=== PATIENT | male | born 1960 | race American Indian/Alaskan Native ===

== ENCOUNTER 2018-01-02 14:12 | Inpatient (IN) | payer OTHER ==
--- NOTE | 2018-01-02 14:55 | Emergency Department Report ---
<ANITA CHUN III - Last Filed: 01/03/18 00:28> ED Back Pain/Injury HPI - General Chief Complaint: Back Pain/Injury Stated Complaint: BACK PAIN Time Seen by Provider: 01/02/18 14:55 - Related Data Allergies Allergy/AdvReac Type Severity Reaction Status Date / Time No Known Allergies Allergy Unverified 01/02/18 14:39 ED Review of Systems ROS: Stated complaint: BACK PAIN Other details as noted in HPI ED Course Vital Signs 01/02/18 01/02/18 01/02/18 14:30 15:26 16:07 Temperature 99 F Pulse Rate 70 Respiratory 18 18 Rate Blood Pressure 210/132 Blood Pressure 235/136 [Left] O2 Sat by Pulse 100 Oximetry 01/02/18 01/02/18 01/02/18 17:00 19:30 19:38 Temperature Pulse Rate 83 Respiratory 16 16 Rate Blood Pressure Blood Pressure 175/59 191/110 191/110 [Left] O2 Sat by Pulse 99 Oximetry 01/02/18 01/02/18 01/02/18 20:08 21:57 22:24 Temperature Pulse Rate 78 78 Respiratory 16 Rate Blood Pressure 175/91 Blood Pressure 186/99 184/109 [Left] O2 Sat by Pulse 98 Oximetry 01/02/18 01/02/18 01/02/18 22:38 23:18 23:48 Temperature Pulse Rate 71 70 77 Respiratory 16 14 Rate Blood Pressure Blood Pressure 184/113 201/108 165/104 [Left] O2 Sat by Pulse 95 Oximetry 01/02/18 01/03/18 01/03/18 23:55 00:53 00:54 Temperature Pulse Rate 74 80 83 Respiratory 14 Rate Blood Pressure Blood Pressure 179/105 165/100 182/108 [Left] O2 Sat by Pulse 99 Oximetry 01/03/18 01/03/18 01/03/18 01:31 01:38 01:40 Temperature Pulse Rate 94 H Respiratory 13 Rate Blood Pressure 185/115 185/115 Blood Pressure [Left] O2 Sat by Pulse 97 Oximetry 01/03/18 01:50 Temperature Pulse Rate 89 Respiratory 19 Rate Blood Pressure 198/122 Blood Pressure [Left] O2 Sat by Pulse 98 Oximetry - Reevaluation(s) Reevaluation #1: Signout received from previous doctor, Dr. Guerin. Dr. Dumont states patient is here for a lower back injury and was found to be hypertensive. Patient has a pending CTA of the abdomen and a CTA of the chest to rule out dissection due to back pain and hypertension. 01/02/18 20:15 Reevaluation #2: I went in to see patient. Discussed patient's blood pressure and clinical situation. Patient states he came to the emergency room for lower back pain 2 days that was radiating down his right leg. Patient states he injured his back lifting something at work. Patient also states he twisted the wrong way while lifting. Patient was brought in by EMS due to chapping of the ago that did seem on a pain patient states the pain is 10 out of 10. Patient states since being here the pain is improved to a 5 out of 10. Patient states he stopped taking his blood pressure medications 8 months ago. Patient states prior to injuring his back he is has occasional chest pressure and consistent shortness of breath and dyspnea on exertion. Patient was given 5 mg of Lopressor and blood pressure remains to be 205/116. CTA of the chest is negative for a PE or dissection. Will admit patient to the hospital service for further evaluation and treatment. We'll consult hospitalist service for further cardiac evaluation. 01/02/18 22:27 - Consultations Consultation #1: Was consulted for admission. Hospitalist to admit patient. Dr contreras to assume care and agrees with nicardipine drip noted to control blood pressure better. Patient is going to be admitted into the ICU 01/02/18 22:37 ED Medical Decision Making - Lab Data Result diagrams: 01/02/18 16:23 01/02/18 16:23 - EKG Data -: EKG Interpreted by Me EKG shows normal: sinus rhythm, axis, intervals, QRS complexes, ST-T waves Rate: normal - EKG Data Interpretation: [facility] - Radiology Data Radiology results: report reviewed Critical Care Time: Yes Critical care attestation.: If time is entered above; I have spent that time in minutes in the direct care of this critically ill patient, excluding procedure time. Critical Care Time: 25 minutes for cc time. ED Disposition Clinical Impression: Malignant hypertension, SOB (shortness of breath), DENISE (dyspnea on exertion) Lower back pain Qualifiers: Chronicity: acute Back pain laterality: right Sciatica presence: with sciatica Sciatica laterality: sciatica of right side Qualified Code(s): M54.41 - Lumbago with sciatica, right side Lumbar strain Qualifiers: Encounter type: initial encounter Qualified Code(s): S39.012A - Strain of muscle, fascia and tendon of lower back, initial encounter Disposition: OP ADMIT IP TO THIS HOSP Is pt being admited?: Yes Does the pt Need Aspirin: Yes Condition: Critical Time of Disposition: 22:37 <PAUL GUERIN - Last Filed: 01/04/18 14:29> ED Back Pain/Injury HPI - General Source: patient, EMS Limitations: No Limitations - History of Present Illness MD Complaint: back pain, back injury -: Sudden, days(s) (3) Similar Symptoms Previously: No Place: work Radiation: right leg Severity: severe Severity scale (0 -10): 10 Quality: sharp Consistency: constant Improves With: immobilization Worsens With: movement Context: while lifting Associated Symptoms: denies other symptoms ED Review of Systems Comment: All other systems reviewed and negative Constitutional: denies: chills, fever Eyes: denies: eye pain ENT: denies: ear pain, throat pain Respiratory: denies: cough, orthopnea, shortness of breath Cardiovascular: denies: chest pain, palpitations, dyspnea on exertion, orthopnea Endocrine: no symptoms reported Gastrointestinal: denies: abdominal pain, nausea, vomiting, diarrhea Genitourinary: denies: urgency, dysuria, frequency Musculoskeletal: back pain Skin: denies: rash, lesions, change in color Neurological: denies: headache, weakness, numbness, paresthesias, confusion Psychiatric: denies: anxiety, depression Hematological/Lymphatic: denies: easy bleeding, easy bruising ED Past Medical Hx - Social History Smoking Status: Never Smoker Substance Use Type: None ED Physical Exam - General Limitations: No Limitations General appearance: alert, in distress - Head Head exam: Present: atraumatic, normocephalic, normal inspection - Eye Eye exam: Present: normal appearance, PERRL, EOMI Pupils: Present: normal accommodation - ENT ENT exam: Present: normal exam, normal orophraynx, mucous membranes moist - Neck Neck exam: Present: normal inspection, full ROM. Absent: tenderness - Respiratory Respiratory exam: Present: normal lung sounds bilaterally. Absent: respiratory distress, wheezes, rales, rhonchi, stridor - Cardiovascular Cardiovascular Exam: Present: regular rate, normal rhythm, normal heart sounds - GI/Abdominal GI/Abdominal exam: Present: soft, normal bowel sounds. Absent: distended, tenderness, guarding, rebound, rigid - Rectal Rectal exam: Present: deferred - Extremities Exam Extremities exam: Present: normal inspection, full ROM, normal capillary refill. Absent: tenderness, pedal edema - Back Exam Back exam: Present: normal inspection, full ROM, muscle spasm, paraspinal tenderness. Absent: tenderness, CVA tenderness (R), CVA tenderness (L), vertebral tenderness - Neurological Exam Neurological exam: Present: alert, oriented X3, CN II-XII intact - Psychiatric Psychiatric exam: Present: normal affect, normal mood - Skin Skin exam: Present: warm, dry, intact, normal color. Absent: rash ED Medical Decision Making - Lab Data Result diagrams: 01/02/18 16:23 01/02/18 16:23
[2018-01-02] MEDS ORDERED: DILAUDID IV ONE ×2 (15:25→20:01)
[2018-01-02] MEDS ORDERED: ZOFRAN IV ONE (15:28)
[2018-01-02 16:42] LABS: Basophils # (Auto) 0.1 K/mm3 (0.0-0.1); Basophils % (Auto) 0.8 % (0.0-1.8); Eosinophils # (Auto) 0.1 K/mm3 (0.0-0.4); Eosinophils % (Auto) 0.8 % (0.0-4.3); Hematocrit 44.7 % (35.5-45.6); Hemoglobin 15.5 gm/dl (11.8-15.2); Lymphocytes # (Auto) 1.3 K/mm3 (1.2-5.4); Lymphocytes % (Auto) 18.7 % (13.4-35.0); Mean Corpuscular HGB Conc 35 % (32-34); Mean Corpuscular Hemoglobin 31 pg (28-32); Mean Corpuscular Volume 89 fl (84-94); Monocytes # (Auto) 0.7 K/mm3 (0.0-0.8); Monocytes % (Auto) 10.2 % (0.0-7.3); Platelet Count 251 K/mm3 (140-440); Red Blood Count 5.05 M/mm3 (3.65-5.03); Red Cell Distribution Width 14.7 % (13.2-15.2)
[2018-01-02] MEDS ORDERED: SOLU-Medrol IV ONE (16:48)
[2018-01-02] MEDS ORDERED: BENADRYL IV ONE (16:48)
[2018-01-02] MEDS ORDERED: SOLU-Medrol ONE (16:52)
[2018-01-02] MEDS ORDERED: BENADRYL ONE (16:53)
[2018-01-02 17:10] LABS: Alanine Aminotransferase 24 units/L (7-56); Albumin 4.6 g/dL (3.9-5); BUN/Creatinine Ratio 16; Blood Urea Nitrogen 14 mg/dL (9-20); Calcium 9.4 mg/dL (8.4-10.2); Hemolysis Index 6
--- NOTE | 2018-01-02 17:17 | Cat Scan Report ---
FINAL REPORT EXAM: CT LUMBAR SPINE WO CON HISTORY: Lower back pain TECHNIQUE: Axial helical imaging through the lumbar spine with sagittal and coronal reformatted images obtained. Comparison: None FINDINGS: There is mild retrolisthesis of L4 on L5. Bony alignment is otherwise normal. The vertebral heights are maintained. There is slight loss of height of the L4-L5 disc. Visualization detail the contents of the lumbar canal is limited by artifact. However, there appears to be a disc bulge at the L4-L5 level with a possible right paracentral or foraminal disc protrusion/herniation. There is no evidence of fracture or subluxation. The paraspinous soft tissues are notable for a focus of atrophic change in the right paraspinous musculature extending from L3 inferiorly through L4. This may represent chronic posttraumatic change. The there is atherosclerotic vascular calcification of the aorta and iliac arteries. IMPRESSION: 1. Appearance of degenerative disc change at L4-L5 level with possible right paracentral/foraminal disc protrusion/herniation. MRI would be helpful for further evaluation 2. Focus of atrophic change in the right paraspinous musculature extending from L3 inferiorly to L4. This may represent chronic posttraumatic change.
[2018-01-02] MEDS ORDERED: DILAUDID ONE (19:59)
[2018-01-02 20:10] LABS: Bilirubin,Urine NEG (Negative); Blood,Urine NEG (Negative); Color,Urine Yellow (Yellow); Mucus,Urine FEW /HPF; Protein,Urine <15 mg/dL mg/dL (Negative); Urobilinogen,Urine < 2.0 mg/dL (<2.0)
[2018-01-02] MEDS ORDERED: LOPRESSOR IV ONE (20:19)
--- NOTE | 2018-01-02 21:22 | Cat Scan Report ---
FINAL REPORT EXAM: CT ANGIO CHEST and CT angiogram abdomen and pelvis HISTORY: pain TECHNIQUE: Following IV administration of 150 cc of Omnipaque 350 axial helical imaging was performed through the chest, abdomen and pelvis with sagittal and coronal reformatted images and maximum intensity projection images obtained. Comparison: CT lumbar spine also performed today FINDINGS: There is no evidence of infiltrate, pneumothorax or pleural fluid collection. The heart is enlarged. The thoracic aorta is normal caliber and without evidence of dissection. There is evidence of plaque formation in the proximal left subclavian artery and in the posterior aortic arch and descending thoracic aorta. There is no evidence of significant stenosis. There is no evidence of intrathoracic adenopathy. The bony structures are unremarkable in appearance. CT angiogram abdomen and pelvis: The liver, pancreas and adrenal glands are normal in appearance. The gallbladder is mildly distended and unremarkable in appearance. There is a cortical scar in the right kidney. The kidneys are otherwise unremarkable. The spleen is normal size. However, there is heterogeneous enhancement within the spleen suggestive of an infiltrative process, tumor or infection. Splenic infarcts cannot be excluded with seen less likely given the appearance. The bowel is normal caliber. The appendix is normal in appearance. There is no evidence of pneumoperitoneum or free fluid. The abdominal aorta is normal caliber. There is atherosclerotic vascular calcification of the large and medium caliber arteries. There is normal enhancement of the major intra-abdominal branches of the abdominal aorta without evidence of occlusion or significant stenosis. There is no evidence of pathologic intra-abdominal adenopathy. The urinary bladder is moderately distended and unremarkable in appearance. The prostate gland is normal size. The bony structures are notable for spondylitic change of the lumbar spine with the appearance of a possible right paracentral/foraminal disc protrusion/herniation at the L5-S1 level. Again noted is the asymmetric atrophy of the right paraspinous musculature in the lower lumbar spine. IMPRESSION: CT angiogram chest: 1. Cardiomegaly. 2. Plaque formation proximal left subclavian artery and posterior aortic arch and descending thoracic aorta without evidence of significant stenosis. No evidence of aortic dissection. CT angiogram abdomen and pelvis: 1. Atherosclerotic vascular calcification of the large and medium caliber arteries without evidence of occlusion, aneurysm or significant stenoses of the aorta or intra-abdominal branches. 2. Heterogeneous enhancement of the spleen concerning for splenic mass or infection. A lymphoproliferative disorder such as lymphoma needs to be considered. Splenic infarcts would seem less likely given the appearance. MRI would be helpful for further evaluation. 3. Spondylitic change lumbar spine with the appearance of a possible right paracentral/foraminal disc protrusion/herniation at the L5-S1 level. If further imaging is required, MRI may be helpful.
[2018-01-02] MEDS ORDERED: ASPIRIN PO ONE (22:38)
[2018-01-02 23:18] LABS: Creatine Kinase MB 2.9 ng/mL (0.0-4.0)
[2018-01-02] MEDS: CARDENE 50 MG in NACL 0.9% 250ML 230 ML IV SCH (23:23)
[2018-01-02] MEDS ORDERED: AMBIEN PO PRN (23:32)
[2018-01-02] MEDS ORDERED: TYLENOL PO PRN (23:32)
[2018-01-02] MEDS ORDERED: ZOFRAN IV PRN (23:32)
[2018-01-02] MEDS ORDERED: SODIUM CHLORIDE FLUSH SYRINGE 10 ML IV PRN (23:32)
[2018-01-02] MEDS ORDERED: ALUM-MAG HYDROX-SIMETH 200-200-20MG/5ML PO PRN (23:32)
--- NOTE | 2018-01-03 00:10 | History and Physical Report ---
History of Present Illness Date of examination: 01/03/18 Date of admission: 01/03/18 Chief complaint: Back pain History of present illness: Patient is a 57-year-old -[place] male with history of hypertension who presented to the ED on account of 4 days history of lower back pain. Patient reported that he suddenly started experiencing back pain after he carried a heavy object at work. The pain got worse today with inability to mobilize, which prompted him to come to the ED for further evaluation. He has positive history of left knee swelling, excessive sweating and shortness of breath with exertion. He denies chest pain, palpitation, orthopnea or PND. No headaches, nausea, vomiting, fever, chills, dizziness, syncope or loss of consciousness. No abdominal pain, constipation, diarrhea, dysuria or frequency. In the ED, patient's blood pressure was noted to be markedly elevated. He admitted to being off his medications for the past 8 months because they made him vomit. While in the ED, his blood pressure could not be controlled with PRN antihypertensives, so he was placed on a nicardipine drip. Past History Past Medical History: hypertension, other (TIA) Past Surgical History: Other (Eye surgery) Social history: other (patient admits to daily alcohol use. He quit smoking tobacco a year ago, he smoked for 2 years. He denies illicit drug use) Family history: diabetes, hypertension, stroke Medications and Allergies Allergies Allergy/AdvReac Type Severity Reaction Status Date / Time No Known Allergies Allergy Unverified 01/02/18 14:39 Active Meds: Active Medications Acetaminophen (Tylenol) 650 mg PO Q6HR PRN PRN Reason: For Pain/Fever/Headache Al Hydrox/Mg Hydrox/Simethicone (Alum-Mag Hydrox-Simeth [id number]/5ml) 30 ml PO Q4H PRN PRN Reason: Indigestion Alprazolam (Xanax) 0.25 mg PO Q8H PRN PRN Reason: Anxiety Docusate Sodium (Colace) 100 mg PO BID VINOD Enoxaparin Sodium (Lovenox) 40 mg SUB-Q QDAY VINOD Nicardipine HCl 50 mg/ Sodium (Chloride) 250 mls @ 25 mls/hr IV TITR VINOD; Protocol Last Admin: 01/02/18 23:23 Dose: 5 mg/hr, 25 mls/hr Sodium Chloride (Nacl 0.45% 1000 Ml) 1,000 mls @ 50 mls/hr IV DIRECT VINOD Morphine Sulfate (Morphine) 2 mg IV Q4H PRN PRN Reason: Pain, Moderate (4-6) Ondansetron HCl (Zofran) 4 mg IV Q8H PRN PRN Reason: Nausea And Vomiting Oxycodone/Acetaminophen (Percocet 5/325) 1 tab PO Q6H PRN PRN Reason: Pain, Moderate (4-6) Sodium Chloride (Sodium Chloride Flush Syringe 10 Ml) 10 ml IV BID VINOD Sodium Chloride (Sodium Chloride Flush Syringe 10 Ml) 10 ml IV PRN PRN PRN Reason: LINE FLUSH Zolpidem Tartrate (Ambien) 5 mg PO QHS PRN PRN Reason: Sleeplessness Review of Systems All systems: negative (except as documented in the HPI, all other systems were reviewed and negative) Exam - Constitutional Vitals: Temp Pulse Resp BP Pulse Ox 99 F 74 14 179/105 95 01/02/18 14:30 01/02/18 23:55 01/02/18 23:48 01/02/18 23:55 01/02/18 23:18 General appearance: Present: no acute distress, well-nourished - EENT Eyes: Present: PERRL, EOM intact ENT: hearing intact, clear oral mucosa - Neck Neck: Present: supple, normal ROM - Respiratory Respiratory effort: normal Respiratory: bilateral: CTA - Cardiovascular Rhythm: regular Heart Sounds: Present: S1 & S2. Absent: rub, click - Extremities Extremities: pulses symmetrical Extremity abnormal: edema (left knee) Peripheral Pulses: within normal limits - Abdominal General gastrointestinal: Present: soft, non-tender, non-distended, normal bowel sounds Male genitourinary: Present: normal - Integumentary Integumentary: Present: clear, warm, dry - Psychiatric Psychiatric: appropriate mood/affect, intact judgment & insight - Neurologic Neurologic: CNII-XII intact Results - Labs CBC & Chem 7: 01/02/18 16:23 01/02/18 16:23 Labs: Laboratory Last Values WBC 6.9 K/mm3 (4.5-11.0) 01/02/18 16:23 RBC 5.05 M/mm3 (3.65-5.03) H 01/02/18 16:23 Hgb 15.5 gm/dl (11.8-15.2) H 01/02/18 16:23 Hct 44.7 % (35.5-45.6) 01/02/18 16:23 MCV 89 fl (84-94) 01/02/18 16:23 MCH 31 pg (28-32) 01/02/18 16:23 MCHC 35 % (32-34) H 01/02/18 16:23 RDW 14.7 % (13.2-15.2) 01/02/18 16:23 Plt Count 251 K/mm3 (140-440) 01/02/18 16:23 Lymph % (Auto) 18.7 % (13.4-35.0) 01/02/18 16:23 [place] % (Auto) 10.2 % (0.0-7.3) H 01/02/18 16:23 Eos % (Auto) 0.8 % (0.0-4.3) 01/02/18 16:23 Baso % (Auto) 0.8 % (0.0-1.8) 01/02/18 16:23 Lymph # 1.3 K/mm3 (1.2-5.4) 01/02/18 16:23 [place] # 0.7 K/mm3 (0.0-0.8) 01/02/18 16:23 Eos # 0.1 K/mm3 (0.0-0.4) 01/02/18 16:23 Baso # 0.1 K/mm3 (0.0-0.1) 01/02/18 16:23 Seg Neutrophils % 69.5 % (40.0-70.0) 01/02/18 16:23 Seg Neutrophils # 4.8 K/mm3 (1.8-7.7) 01/02/18 16:23 Sodium 138 mmol/L (137-145) 01/02/18 16:23 Potassium 4.0 mmol/L (3.6-5.0) 01/02/18 16:23 Chloride 100.5 mmol/L (98-107) 01/02/18 16:23 Carbon Dioxide 23 mmol/L (22-30) 01/02/18 16:23 Anion Gap 19 mmol/L 01/02/18 16:23 BUN 14 mg/dL (9-20) 01/02/18 16:23 Creatinine 0.9 mg/dL (0.8-1.5) 01/02/18 16:23 Estimated GFR > 60 ml/min 01/02/18 16:23 BUN/Creatinine Ratio 16 % 01/02/18 16:23 Glucose 96 mg/dL (75-100) 01/02/18 16:23 Calcium 9.4 mg/dL (8.4-10.2) 01/02/18 16:23 Total Bilirubin 0.40 mg/dL (0.1-1.2) 01/02/18 16:23 AST 21 units/L (5-40) 01/02/18 16:23 ALT 24 units/L (7-56) 01/02/18 16:23 Alkaline Phosphatase 83 units/L (35-129) 01/02/18 16:23 Total Creatine Kinase 151 units/L (55-170) 01/02/18 22:48 CK-MB (CK-2) 2.9 ng/mL (0.0-4.0) 01/02/18 22:48 CK-MB (CK-2) Rel Index 1.9 (0-4) 01/02/18 22:48 Troponin T < 0.010 ng/mL (0.00-0.029) 01/02/18 22:48 NT-Pro-B Natriuret Pep 133.7 pg/mL (0-900) 01/02/18 22:48 Total Protein 7.9 g/dL (6.3-8.2) 01/02/18 16:23 Albumin 4.6 g/dL (3.9-5) 01/02/18 16:23 Albumin/Globulin Ratio 1.4 % 01/02/18 16:23 Urine Color Yellow (Yellow) 01/02/18 19:22 Urine Turbidity Clear (Clear) 01/02/18 19:22 Urine pH 5.0 (5.0-7.0) 01/02/18 19:22 Ur Specific [place] 1.047 (1.003-1.030) H 01/02/18 19:22 Urine Protein <15 mg/dl mg/dL (Negative) 01/02/18 19:22 Urine Glucose (UA) Neg mg/dL (Negative) 01/02/18 19:22 Urine Ketones Tr mg/dL (Negative) 01/02/18 19:22 Urine Blood Neg (Negative) 01/02/18 19:22 Urine Nitrite Neg (Negative) 01/02/18 19:22 Urine Bilirubin Neg (Negative) 01/02/18 19:22 Urine Urobilinogen < 2.0 mg/dL (<2.0) 01/02/18 19:22 Ur Leukocyte Esterase Neg (Negative) 01/02/18 19:22 Urine WBC (Auto) 1.0 /HPF (0.0-6.0) 01/02/18 19:22 Urine RBC (Auto) 2.0 /HPF (0.0-6.0) 01/02/18 19:22 U Epithel Cells (Auto) 1.0 /HPF (0-13.0) 01/02/18 19:22 Urine Mucus Few /HPF 01/02/18 19:22 Assessment and Plan Assessment and plan: Hypertensive emergency with BP:210/132 -Will admit patient to the ICU -Will continue nicardipine drip Acute severe back pain -CT lumbar spine showed possible disc herniation L5-S1 -MRI for further evaluation pending -When necessary narcotics for pain control Possible splenic mass versus infection per imaging -MRI recommended for further evaluation Dyspnea on exertion -Echo to assess EF and valvular function Left knee swelling with pain -Left knee x-ray for further eval Medication noncompliance -Patient counseled History of heat intolerance -Will check TSH level Prophylaxis -DVT prophylaxis with Lovenox I spent 45 minutes providing critical care to this seriously ill patient who requires frequent reassessments of his cardiovascular status. Disposition: Discharge will depend on clinical course
--- NOTE | 2018-01-03 01:03 | XRay Report ---
FINAL REPORT EXAM: XR KNEE 3V LT HISTORY: LT KNEE PAIN TECHNIQUE: PRIORS: None. FINDINGS: The bones are normally aligned and mineralized. There is severe narrowing of the medial joint space with subchondral sclerosis mild osteophyte formation. There is mild osteophyte formation on the posterior patella. The lateral joint is well preserved. Is no evidence of acute fracture. The soft tissues are unremarkable. IMPRESSION: No evidence of acute fracture or subluxation. 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
[2018-01-03] MEDS: PERCOCET 5/325 PO PRN ×3 (02:15→18:12)
[2018-01-03] MEDS: XANAX PO PRN ×3 (03:16→20:04)
[2018-01-03] MEDS: CARDENE 50 MG in NACL 0.9% 250ML 230 ML IV SCH (07:17)
[2018-01-03] MEDS: COLACE PO SCH ×2 (10:11→21:02)
[2018-01-03] MEDS: LOVENOX SUB-Q SCH (10:11)
--- NOTE | 2018-01-03 10:58 | Progress Note ---
Assessment and Plan Assessment and Plan Hypertensive emergency with BP:210/132--167/103 mm HG -BP trending down Oral BP meds ordered -Will D/c nicardipine drip Acute severe back pain -CT lumbar spine showed possible disc herniation L5-S1 -MRI for further evaluation pending -When necessary narcotics for pain control Possible splenic mass versus infection per imaging -MRI recommended for further evaluation Dyspnea on exertion -Echo to assess EF and valvular function Left knee swelling with pain -Left knee x-ray for further eval Medication noncompliance -Patient counseled History of heat intolerance -Will check TSH level Prophylaxis -DVT prophylaxis with Lovenox 167/103 now Subjective Date of service: 01/03/18 Principal diagnosis: hypertensive emergency Interval history: Symptomatically better Objective - Constitutional Vitals: Vital Signs - 12hr 01/02/18 01/02/18 01/02/18 23:18 23:48 23:55 Pulse Rate 70 77 74 Respiratory 16 14 Rate Blood Pressure Blood Pressure 201/108 165/104 179/105 [Left] O2 Sat by Pulse 95 Oximetry 01/03/18 01/03/18 01/03/18 00:53 00:54 01:31 Pulse Rate 80 83 Respiratory 14 Rate Blood Pressure Blood Pressure 165/100 182/108 [Left] O2 Sat by Pulse 99 97 Oximetry 01/03/18 01/03/18 01/03/18 01:38 01:40 01:50 Pulse Rate 94 H 89 Respiratory 13 19 Rate Blood Pressure 185/115 185/115 198/122 Blood Pressure [Left] O2 Sat by Pulse 98 Oximetry 01/03/18 01/03/18 01/03/18 02:00 02:10 02:20 Pulse Rate 89 94 H 98 H Respiratory 26 H 20 31 H Rate Blood Pressure 172/98 185/115 204/111 Blood Pressure [Left] O2 Sat by Pulse 97 99 97 Oximetry 01/03/18 01/03/18 01/03/18 02:30 02:40 02:50 Pulse Rate 98 H 96 H 93 H Respiratory 18 16 15 Rate Blood Pressure 219/114 219/114 191/107 Blood Pressure [Left] O2 Sat by Pulse 97 98 98 Oximetry 01/03/18 01/03/18 01/03/18 03:00 03:31 05:00 Pulse Rate 95 H Respiratory 31 H Rate Blood Pressure 167/103 Blood Pressure [Left] O2 Sat by Pulse 97 97 96 Oximetry 01/03/18 01/03/18 07:00 09:00 Pulse Rate Respiratory Rate Blood Pressure Blood Pressure [Left] O2 Sat by Pulse 96 96 Oximetry General appearance: Present: no acute distress, well-nourished - EENT Eyes: PERRL, EOM intact ENT: hearing intact, clear oral mucosa Ears: bilateral: normal - Neck Neck: supple, normal ROM - Respiratory Respiratory effort: normal Respiratory: bilateral: CTA - Breasts Breasts: normal - Cardiovascular Rhythm: regular Heart Sounds: Present: S1 & S2. Absent: gallop, rub Extremities: pulses intact, No edema, normal color, Full ROM - Gastrointestinal General gastrointestinal: Present: soft, non-tender, non-distended, normal bowel sounds - Genitourinary Male genitourinary: normal - Integumentary Integumentary: clear, warm, dry - Musculoskeletal Musculoskeletal: 1, strength equal bilaterally - Neurologic Neurologic: moves all extremities - Psychiatric Psychiatric: memory intact, appropriate mood/affect, intact judgment & insight - Labs CBC & Chem 7: 01/02/18 16:23 01/02/18 16:23 Labs: Abnormal lab results 01/02/18 01/02/18 Range/Units 16:23 19:22 RBC 5.05 H (3.65-5.03) M/mm3 Hgb 15.5 H (11.8-15.2) gm/dl MCHC 35 H (32-34) % [place] % (Auto) 10.2 H (0.0-7.3) % Ur Specific [place] 1.047 H (1.003-1.030)
[2018-01-03] MEDS: MORPHINE IV PRN (13:48)
[2018-01-03] MEDS: COREG PO SCH ×2 (13:51→21:02)
[2018-01-03] MEDS: COZAAR PO SCH (13:52)
--- NOTE | 2018-01-03 15:51 | Consultation ---
History of Present Illness Consult date: 01/03/18 Requesting physician: JADEN CERVANTES Reason for consult: other (Hypertensive emergency) History of present illness: PULMONARY/CCM CONSULT NOTE (Full dictation # [id number]) Please see dictated notes for full details Past History Past Medical History: hypertension, other (TIA) Past Surgical History: Other (Eye surgery) Social history: other (patient admits to daily alcohol use. He quit smoking tobacco a year ago, he smoked for 2 years. He denies illicit drug use) Family history: diabetes, hypertension, stroke Medications and Allergies Allergies Allergy/AdvReac Type Severity Reaction Status Date / Time No Known Allergies Allergy Unverified 01/02/18 14:39 Active Meds: Active Medications Acetaminophen (Tylenol) 650 mg PO Q6HR PRN PRN Reason: For Pain/Fever/Headache Al Hydrox/Mg Hydrox/Simethicone (Alum-Mag Hydrox-Simeth [phone]/5ml) 30 ml PO Q4H PRN PRN Reason: Indigestion Alprazolam (Xanax) 0.25 mg PO Q8H PRN PRN Reason: Anxiety Last Admin: 01/03/18 10:11 Dose: 0.25 mg Baclofen (Lioresal) 20 mg PO TID [facility]OD Carvedilol (Coreg) 12.5 mg PO BID [facility] Last Admin: 01/03/18 13:51 Dose: 12.5 mg Docusate Sodium (Colace) 100 mg PO BID [facility] Last Admin: 01/03/18 10:11 Dose: 100 mg Enoxaparin Sodium (Lovenox) 40 mg SUB-Q QDAY [facility] Last Admin: 01/03/18 10:11 Dose: 40 mg Nicardipine HCl 50 mg/ Sodium (Chloride) 250 mls @ 25 mls/hr IV TITR VINOD; Protocol Last Admin: 01/03/18 07:17 Dose: 5 mg/hr, 25 mls/hr Sodium Chloride (Nacl 0.45% 1000 Ml) 1,000 mls @ 50 mls/hr IV DIRECT [facility] Losartan Potassium (Cozaar) 100 mg PO QDAY [facility] Last Admin: 01/03/18 13:52 Dose: 100 mg Morphine Sulfate (Morphine) 2 mg IV Q4H PRN PRN Reason: Pain, Moderate (4-6) Last Admin: 01/03/18 13:48 Dose: 2 mg Ondansetron HCl (Zofran) 4 mg IV Q8H PRN PRN Reason: Nausea And Vomiting Oxycodone/Acetaminophen (Percocet 5/325) 1 tab PO Q6H PRN PRN Reason: Pain, Moderate (4-6) Last Admin: 01/03/18 08:03 Dose: 1 tab Sodium Chloride (Sodium Chloride Flush Syringe 10 Ml) 10 ml IV BID [facility]INOD Sodium Chloride (Sodium Chloride Flush Syringe 10 Ml) 10 ml IV PRN PRN PRN Reason: LINE FLUSH Zolpidem Tartrate (Ambien) 5 mg PO QHS PRN PRN Reason: Sleeplessness Physical Examination Vital signs: Vital Signs Temp Pulse Resp BP Pulse Ox 99 F 70 18 210/132 100 01/02/18 14:30 01/02/18 14:30 01/02/18 14:30 01/02/18 14:30 01/02/18 14:30 Results - Laboratory Findings CBC and BMP: 01/02/18 16:23 01/02/18 16:23 Abnormal lab findings: Abnormal Labs 01/02/18 01/02/18 16:23 19:22 RBC 5.05 H Hgb 15.5 H MCHC 35 H [place] % (Auto) 10.2 H Ur Specific [place] 1.047 H
[2018-01-03] MEDS: LIORESAL PO SCH ×2 (15:59→21:03)
[2018-01-03] MEDS: APRESOLINE IV SCH ×3 (16:02→21:06)
[2018-01-03] MEDS: SODIUM CHLORIDE FLUSH SYRINGE 10 ML IV SCH ×2 (18:38→21:02)
[2018-01-04] MEDS: PERCOCET 5/325 PO PRN ×2 (02:51→10:28)
[2018-01-04] MEDS: XANAX PO PRN ×2 (04:05→14:16)
[2018-01-04] MEDS: APRESOLINE IV SCH ×6 (04:09→22:36)
[2018-01-04] MEDS: MORPHINE IV PRN ×2 (08:25→18:31)
[2018-01-04] MEDS: LIORESAL PO SCH ×3 (08:26→20:16)
[2018-01-04] MEDS: LOVENOX SUB-Q SCH (10:22)
[2018-01-04] MEDS: COLACE PO SCH ×2 (10:23→22:31)
[2018-01-04] MEDS: COZAAR PO SCH (10:23)
[2018-01-04] MEDS: COREG PO SCH ×2 (10:23→22:36)
[2018-01-04] MEDS: SODIUM CHLORIDE FLUSH SYRINGE 10 ML IV SCH ×2 (10:24→22:37)
--- NOTE | 2018-01-04 14:21 | Progress Note ---
Assessment and Plan Hypertensive emergency. Back pain. Obesity. Dyspnea on exertion. Left knee swelling. Medication noncompliance. History of tobacco use, now abstaining - continue to titrate antihypertensives - weight loss and tobacco abstinence counseled - continue GI & VTE prophylaxis - continue other care per attending ... will see prn at this point. Subjective Date of service: 01/04/18 Principal diagnosis: hypertensive emergency; DENISE; SOB; Obesity Interval history: Patient is seen today for: hypertensive emergency; DENISE; SOB; Obesity Seen and examined at bedside; 24hour events reviewed; nursing and respiratory care staff consulted; no adverse overnight events reported to me; of jada bautista; doing better; denies acute chest pains or increased SOB Objective Vital Signs - 12hr 01/04/18 01/04/18 01/04/18 02:21 02:31 02:41 Temperature Pulse Rate 68 65 69 Respiratory 19 17 14 Rate Blood Pressure 146/88 146/88 146/88 O2 Sat by Pulse 97 97 98 Oximetry 01/04/18 01/04/18 01/04/18 02:51 03:00 03:11 Temperature Pulse Rate 67 84 78 Respiratory 17 15 14 Rate Blood Pressure 146/88 143/102 143/102 O2 Sat by Pulse 97 98 99 Oximetry 01/04/18 01/04/18 01/04/18 03:21 03:31 03:41 Temperature Pulse Rate 77 71 76 Respiratory 22 20 17 Rate Blood Pressure 143/102 143/102 143/102 O2 Sat by Pulse 95 96 97 Oximetry 01/04/18 01/04/18 01/04/18 03:51 04:00 04:09 Temperature Pulse Rate 65 75 Respiratory 16 13 Rate Blood Pressure 143/102 142/100 148/102 O2 Sat by Pulse 95 97 Oximetry 01/04/18 01/04/18 01/04/18 04:11 04:21 04:31 Temperature Pulse Rate 65 65 65 Respiratory 17 15 18 Rate Blood Pressure 142/100 142/100 142/100 O2 Sat by Pulse 95 96 96 Oximetry 01/04/18 01/04/18 01/04/18 04:41 04:51 05:00 Temperature Pulse Rate 66 64 77 Respiratory 15 17 18 Rate Blood Pressure 142/100 142/100 163/71 O2 Sat by Pulse 95 95 94 Oximetry 01/04/18 01/04/18 01/04/18 05:11 05:21 05:31 Temperature Pulse Rate 68 69 70 Respiratory 17 18 17 Rate Blood Pressure 163/71 142/100 142/100 O2 Sat by Pulse 95 95 95 Oximetry 01/04/18 01/04/18 01/04/18 05:41 05:51 06:01 Temperature Pulse Rate 68 70 64 Respiratory 17 17 17 Rate Blood Pressure 142/100 142/100 157/40 O2 Sat by Pulse 95 96 95 Oximetry 01/04/18 01/04/18 01/04/18 06:11 06:21 06:31 Temperature Pulse Rate 67 66 63 Respiratory 17 16 13 Rate Blood Pressure 157/40 157/40 157/40 O2 Sat by Pulse 95 95 98 Oximetry 01/04/18 01/04/18 01/04/18 06:41 06:51 07:00 Temperature Pulse Rate 68 62 64 Respiratory 19 17 17 Rate Blood Pressure 157/40 157/40 170/130 O2 Sat by Pulse 98 97 96 Oximetry 01/04/18 01/04/18 01/04/18 07:11 07:21 07:31 Temperature Pulse Rate 67 64 66 Respiratory 18 17 20 Rate Blood Pressure 170/130 157/40 157/40 O2 Sat by Pulse 96 96 96 Oximetry 01/04/18 01/04/18 01/04/18 07:41 07:51 08:00 Temperature 97.8 F Pulse Rate 66 77 75 Respiratory 19 17 22 Rate Blood Pressure 157/40 157/40 139/101 O2 Sat by Pulse 96 97 95 Oximetry 01/04/18 01/04/18 01/04/18 08:11 08:21 08:31 Temperature Pulse Rate 74 76 75 Respiratory 19 18 18 Rate Blood Pressure 139/101 139/101 139/101 O2 Sat by Pulse 93 97 94 Oximetry 01/04/18 01/04/18 01/04/18 08:41 08:51 09:00 Temperature Pulse Rate 91 H 88 87 Respiratory 17 11 L 15 Rate Blood Pressure 139/101 139/101 174/96 O2 Sat by Pulse 96 97 95 Oximetry 01/04/18 01/04/18 01/04/18 09:11 09:21 09:31 Temperature Pulse Rate 92 H 88 Respiratory 11 L 14 16 Rate Blood Pressure 174/96 174/96 174/96 O2 Sat by Pulse 98 96 96 Oximetry 01/04/18 01/04/18 01/04/18 09:41 09:51 10:00 Temperature Pulse Rate 86 85 85 Respiratory 24 20 13 Rate Blood Pressure 174/96 174/96 160/102 O2 Sat by Pulse 96 94 96 Oximetry 01/04/18 01/04/18 01/04/18 10:11 10:21 10:31 Temperature Pulse Rate 83 92 H 84 Respiratory 20 21 17 Rate Blood Pressure 160/102 160/102 160/102 O2 Sat by Pulse 95 97 96 Oximetry 01/04/18 01/04/18 01/04/18 10:41 10:50 11:00 Temperature Pulse Rate 88 97 H 90 Respiratory 28 H 22 25 H Rate Blood Pressure 160/102 160/102 158/87 O2 Sat by Pulse 95 97 98 Oximetry 01/04/18 01/04/18 01/04/18 11:10 11:21 11:31 Temperature Pulse Rate 79 75 80 Respiratory 16 18 21 Rate Blood Pressure 158/87 158/87 158/87 O2 Sat by Pulse 96 93 94 Oximetry 01/04/18 01/04/18 01/04/18 11:41 11:51 12:00 Temperature 97.3 F L Pulse Rate 96 H 91 H 82 Respiratory 17 17 18 Rate Blood Pressure 158/87 158/87 172/85 O2 Sat by Pulse 96 95 98 Oximetry 01/04/18 01/04/18 01/04/18 12:10 12:20 12:30 Temperature Pulse Rate 75 77 Respiratory 15 20 20 Rate Blood Pressure 172/85 172/85 172/85 O2 Sat by Pulse 94 92 93 Oximetry 01/04/18 01/04/18 01/04/18 12:40 12:50 13:00 Temperature Pulse Rate 73 78 78 Respiratory 18 18 17 Rate Blood Pressure 172/85 172/85 172/85 O2 Sat by Pulse 96 94 96 Oximetry 01/04/18 01/04/18 01/04/18 13:10 13:20 13:30 Temperature Pulse Rate 76 79 73 Respiratory 18 17 19 Rate Blood Pressure 158/87 163/78 163/78 O2 Sat by Pulse 96 95 96 Oximetry 01/04/18 01/04/18 01/04/18 13:40 13:50 14:00 Temperature Pulse Rate 86 74 67 Respiratory 17 19 17 Rate Blood Pressure 163/78 163/78 146/81 O2 Sat by Pulse 97 96 97 Oximetry Constitutional: no acute distress, alert, other (obese middle aged male; normocephalic and atraumatic) Eyes: non-icteric ENT: oropharynx moist Neck: supple, lymphadenopathy, no JVD Effort: normal Ascultation: Bilateral: clear, diminished breath sounds Percussion: Bilateral: not dull Cardiovascular: regular rate and rhythm Gastrointestinal: normoactive bowel sounds, soft, non-tender, non-distended Integumentary: normal Extremities: no cyanosis, no edema, pulses normal, no ischemia or petechiae Neurologic: normal mental status, non-focal exam, pupils equal and round, motor strength normal and Psychiatric: mood appropriate, affect normal CBC and BMP: 01/02/18 16:23 01/02/18 16:23 Abnormal lab findings: Abnormal Labs 01/02/18 01/02/18 16:23 19:22 RBC 5.05 H Hgb 15.5 H MCHC 35 H [place] % (Auto) 10.2 H Ur Specific [place] 1.047 H Chest x-ray: image reviewed
--- NOTE | 2018-01-04 14:38 | Progress Note ---
Assessment and Plan Assessment and Plan Hypertensive emergency with BP:210/132--167/103 mm HG--Today 146/81 mm Hg Oral BP meds ordered -Will D/c nicardipine drip Transfer to [facility] Acute severe back pain -CT lumbar spine showed possible disc herniation L5-S1 -MRI possibly tomorrow and discharge -When necessary narcotics for pain control Possible splenic mass versus infection per imaging -MRI recommended for further evaluation Dyspnea on exertion -Echo--Normal EF Obesity induced SOB Medication noncompliance -Patient counseled History of heat intolerance -TSH level Prophylaxis -DVT prophylaxis with Lovenox Discharge planning issues Patient maybe discharged tomorrow after MRI is done If disc prolapse present patient to follow with Ortho/Neurosurgeon as outpatient Subjective Date of service: 01/04/18 Principal diagnosis: hypertensive emergency Interval history: Symptomatically better Objective - Constitutional Vitals: Vital Signs - 12hr 01/04/18 01/04/18 01/04/18 02:41 02:51 03:00 Temperature Pulse Rate 69 67 84 Respiratory 14 17 15 Rate Blood Pressure 146/88 146/88 143/102 O2 Sat by Pulse 98 97 98 Oximetry 01/04/18 01/04/18 01/04/18 03:11 03:21 03:31 Temperature Pulse Rate 78 77 71 Respiratory 14 22 20 Rate Blood Pressure 143/102 143/102 143/102 O2 Sat by Pulse 99 95 96 Oximetry 01/04/18 01/04/18 01/04/18 03:41 03:51 04:00 Temperature Pulse Rate 76 65 75 Respiratory 17 16 13 Rate Blood Pressure 143/102 143/102 142/100 O2 Sat by Pulse 97 95 97 Oximetry 01/04/18 01/04/18 01/04/18 04:09 04:11 04:21 Temperature Pulse Rate 65 65 Respiratory 17 15 Rate Blood Pressure 148/102 142/100 142/100 O2 Sat by Pulse 95 96 Oximetry 01/04/18 01/04/18 01/04/18 04:31 04:41 04:51 Temperature Pulse Rate 65 66 64 Respiratory 18 15 17 Rate Blood Pressure 142/100 142/100 142/100 O2 Sat by Pulse 96 95 95 Oximetry 01/04/18 01/04/18 01/04/18 05:00 05:11 05:21 Temperature Pulse Rate 77 68 69 Respiratory 18 17 18 Rate Blood Pressure 163/71 163/71 142/100 O2 Sat by Pulse 94 95 95 Oximetry 01/04/18 01/04/18 01/04/18 05:31 05:41 05:51 Temperature Pulse Rate 70 68 70 Respiratory 17 17 17 Rate Blood Pressure 142/100 142/100 142/100 O2 Sat by Pulse 95 95 96 Oximetry 01/04/18 01/04/18 01/04/18 06:01 06:11 06:21 Temperature Pulse Rate 64 67 66 Respiratory 17 17 16 Rate Blood Pressure 157/40 157/40 157/40 O2 Sat by Pulse 95 95 95 Oximetry 01/04/18 01/04/18 01/04/18 06:31 06:41 06:51 Temperature Pulse Rate 63 68 62 Respiratory 13 19 17 Rate Blood Pressure 157/40 157/40 157/40 O2 Sat by Pulse 98 98 97 Oximetry 01/04/18 01/04/18 01/04/18 07:00 07:11 07:21 Temperature Pulse Rate 64 67 64 Respiratory 17 18 17 Rate Blood Pressure 170/130 170/130 157/40 O2 Sat by Pulse 96 96 96 Oximetry 01/04/18 01/04/18 01/04/18 07:31 07:41 07:51 Temperature Pulse Rate 66 66 77 Respiratory 20 19 17 Rate Blood Pressure 157/40 157/40 157/40 O2 Sat by Pulse 96 96 97 Oximetry 01/04/18 01/04/18 01/04/18 08:00 08:11 08:21 Temperature 97.8 F Pulse Rate 75 74 76 Respiratory 22 19 18 Rate Blood Pressure 139/101 139/101 139/101 O2 Sat by Pulse 95 93 97 Oximetry 01/04/18 01/04/18 01/04/18 08:31 08:41 08:51 Temperature Pulse Rate 75 91 H 88 Respiratory 18 17 11 L Rate Blood Pressure 139/101 139/101 139/101 O2 Sat by Pulse 94 96 97 Oximetry 01/04/18 01/04/18 01/04/18 09:00 09:11 09:21 Temperature Pulse Rate 87 92 H Respiratory 15 11 L 14 Rate Blood Pressure 174/96 174/96 174/96 O2 Sat by Pulse 95 98 96 Oximetry 01/04/18 01/04/18 01/04/18 09:31 09:41 09:51 Temperature Pulse Rate 88 86 85 Respiratory 16 24 20 Rate Blood Pressure 174/96 174/96 174/96 O2 Sat by Pulse 96 96 94 Oximetry 01/04/18 01/04/18 01/04/18 10:00 10:11 10:21 Temperature Pulse Rate 85 83 92 H Respiratory 13 20 21 Rate Blood Pressure 160/102 160/102 160/102 O2 Sat by Pulse 96 95 97 Oximetry 01/04/18 01/04/18 01/04/18 10:31 10:41 10:50 Temperature Pulse Rate 84 88 97 H Respiratory 17 28 H 22 Rate Blood Pressure 160/102 160/102 160/102 O2 Sat by Pulse 96 95 97 Oximetry 01/04/18 01/04/18 01/04/18 11:00 11:10 11:21 Temperature Pulse Rate 90 79 75 Respiratory 25 H 16 18 Rate Blood Pressure 158/87 158/87 158/87 O2 Sat by Pulse 98 96 93 Oximetry 01/04/18 01/04/18 01/04/18 11:31 11:41 11:51 Temperature Pulse Rate 80 96 H 91 H Respiratory 21 17 17 Rate Blood Pressure 158/87 158/87 158/87 O2 Sat by Pulse 94 96 95 Oximetry 01/04/18 01/04/18 01/04/18 12:00 12:10 12:20 Temperature 97.3 F L Pulse Rate 82 75 77 Respiratory 18 15 20 Rate Blood Pressure 172/85 172/85 172/85 O2 Sat by Pulse 98 94 92 Oximetry 01/04/18 01/04/18 01/04/18 12:30 12:40 12:50 Temperature Pulse Rate 73 78 Respiratory 20 18 18 Rate Blood Pressure 172/85 172/85 172/85 O2 Sat by Pulse 93 96 94 Oximetry 01/04/18 01/04/18 01/04/18 13:00 13:10 13:20 Temperature Pulse Rate 78 76 79 Respiratory 17 18 17 Rate Blood Pressure 172/85 158/87 163/78 O2 Sat by Pulse 96 96 95 Oximetry 01/04/18 01/04/18 01/04/18 13:30 13:40 13:50 Temperature Pulse Rate 73 86 74 Respiratory 19 17 19 Rate Blood Pressure 163/78 163/78 163/78 O2 Sat by Pulse 96 97 96 Oximetry 01/04/18 14:00 Temperature Pulse Rate 67 Respiratory 17 Rate Blood Pressure 146/81 O2 Sat by Pulse 97 Oximetry General appearance: Present: no acute distress, well-nourished - EENT Eyes: PERRL, EOM intact ENT: hearing intact, clear oral mucosa Ears: bilateral: normal - Neck Neck: supple, normal ROM - Respiratory Respiratory effort: normal Respiratory: bilateral: CTA - Breasts Breasts: normal - Cardiovascular Rhythm: regular Heart Sounds: Present: S1 & S2. Absent: gallop, rub Extremities: pulses intact, No edema, normal color, Full ROM - Gastrointestinal General gastrointestinal: Present: soft, non-tender, non-distended, normal bowel sounds - Genitourinary Male genitourinary: normal - Integumentary Integumentary: clear, warm, dry - Musculoskeletal Musculoskeletal: 1, strength equal bilaterally - Neurologic Neurologic: moves all extremities - Psychiatric Psychiatric: memory intact, appropriate mood/affect, intact judgment & insight - Labs CBC & Chem 7: 01/02/18 16:23 01/02/18 16:23 Labs: IMPRESSION: 1. Appearance of degenerative disc change at L4-L5 level with possible right paracentral/foraminal disc protrusion/herniation. MRI would be helpful for further evaluation 2. Focus of atrophic change in the right paraspinous musculature extending from L3 inferiorly to L4. This may represent chronic posttraumatic change. ECHO- Normal EF
--- NOTE | 2018-01-04 23:28 | Consultation ---
PULMONARY CRITICAL CARE CONSULTATION NOTE CONSULTING PHYSICIAN: Jo Pham MD REASON FOR CONSULTATION: Hypertensive emergency. CHIEF COMPLAINT AND HISTORY OF PRESENT ILLNESS: The patient is a 57-year-old male with past medical history significant for hypertension, presented to the Emergency Room complaining of 4 days of lower back pain. He stated that it was related to exertion and current heavy object at work, however, the pain got worse on the day of presentation. He denied any chest pain. He was complaining of some left knee swelling, dyspnea on exertion. Denies fevers or chills. Denies nausea, vomiting or other constitutional symptoms. In the ER, he was found to be significantly hypertensive with systolic blood pressure as high as 235 and diastolics 136. He was placed on a Cardene drip and admitted to the Intensive Care Unit where I stopped by to see him. When I stopped by to see him, he was resting in bed, remained on Cardene. He still denied chest pain, was feeling a little bit better. He admits to not being compliant with his medications for a little while. He does have less than 10 pack year tobacco smoking history and denied any illicit drug use or abuse. That really is as much of the history of presentation as I have. PAST MEDICAL HISTORY: 1. Hypertension. 2. He has had a transient ischemic attack in the past. PAST SURGICAL HISTORY: He has had surgery to his eye. MEDICATIONS: Medications he was on at the time I stopped by to see him were reviewed, pertinent medications include the following: Tylenol 650 mg p.o. q. 6 hours p.r.n. fevers and mild pain, p.r.n. Xanax 0.25 mg p.o. q. 8 hours for anxiety. Carvedilol 12.5 mg p.o. b.i.d., docusate sodium 100 mg p.o. b.i.d., Lovenox 40 mg subcutaneous daily, Cozaar 100 mg p.o. daily, morphine 2 mg IV q. 4 hours p.r.n. moderate pain, nicardipine drip was going at 5 mg an hour, Zofran 4 mg IV q. 8 hours p.r.n. nausea and vomiting as well as p.r.n. Percocet. ALLERGIES: No known drug allergies. DIET: Obese gentleman. Denies significant weight loss or gain in the preceding few weeks to months. FAMILY AND SOCIAL HISTORY: Lives in the community. Less than 5 pack year tobacco smoking history. Denies current alcohol, tobacco, or illicit drug use or abuse. Family history is positive for diabetes, hypertension and cerebrovascular accidents. REVIEW OF SYSTEMS: No loss of consciousness. No new onset seizures. No new onset focal weakness. No gross hematochezia or melena. No gross hematuria or dysuria. No hematemesis. No hemoptysis. Denies palpitations. Denies heat or cold intolerance. He does have the dyspnea on exertion. Denied orthopnea. Denied polydipsia, polyuria. Complete 13-system review of systems was obtained. Pertinent positives and/or negatives as in body of history above, otherwise noncontributory. PHYSICAL EXAMINATION: VITAL SIGNS: At presentation had a low-grade fever 99.0 degrees Fahrenheit with a pulse of 70, respiratory rate of 18, and blood pressure 210/132. O2 sats were 97%, inspired oxygen concentration at that time was not recorded. When I stopped by to see him was 95% on room air. GENERAL: He is a middle-aged male, obese, normocephalic, atraumatic, talking to me in full sentences. HEAD, EYES, EARS, NOSE, AND THROAT: Eyes: Anicteric, no conjunctival erythema. Grossly, no palpable lymph nodes in the supraclavicular or submandibular lymph node chains. Oropharynx is a Mallampati #3-4 oropharynx. No thyromegaly. LUNGS: Auscultation of both lung higgins significant for distant breath sounds, but clear. No wheezing. HEART: Heart sounds 1 and 2 are heard. They were regular in rate and rhythm at time of my evaluation. No rubs or murmurs, no gallop. ABDOMEN: Soft, full, bowel sounds are positive, nontender. No palpable hepatosplenomegaly. No suprapubic tenderness or swelling. EXTREMITIES: Without overt digital clubbing or cyanosis. He does have some edema to the left knee. Dorsalis pedis pulses are palpable bilaterally. NEUROLOGIC: Moves all 4 extremities spontaneously. Cranial nerves 2-12 are intact. Pupils are equal, round, reactive to light. Extraocular muscle movements are intact. SKIN: The skin is of normal turgor. No cellulitis. No rash. PSYCHIATRIC: Mood is normal and affect is appropriate. Intact insight and judgment. LABORATORY DATA: From my review; admission white cell count 6900, hemoglobin 15.5, hematocrit 44.7, platelet count 251. Serum sodium 138, potassium 4.0, chloride 101, bicarb 23, BUN 14, creatinine 0.9, glucose 96. Liver function test within normal limits. BNP within normal limits. Cardiac enzymes within normal limits. TSH within normal limits. Urinalysis was unremarkable. No microbiology studies. DIAGNOSTIC DATA: Chest x-ray was not done; however, a CT angiogram of the chest was done. I have reviewed the CT scan. I have also reviewed the radiologist's interpretation. The mediastinal windows reveal poor contrast phase timing for evaluation of pulmonary emboli; however, no obvious dissection of the aorta in the higgins that were visible. Lung windows do not reveal any significant abnormalities. It is, however, an inadequate study for evaluation of pulmonary emboli. ASSESSMENT: 1. Hypertensive emergency. 2. Back pain. 3. Obesity. 4. Dyspnea on exertion. 5. Left knee swelling. 6. Medication noncompliance. 7. History of tobacco use, now abstaining. PLAN: Will begin him on scheduled hydralazine with hold parameters, while we up titrate his oral medications in a bit to get him off the nicardipine drip. He really did not have any complaints in particular with regards to overt chest pain; however, he is at risk with his obesity and lifestyle of possible venous thromboembolic event. Will go ahead and get a D-dimer as well as ultrasounds of both lower extremities in light of the swelling. Depending on the results, a decision will be made as to whether I should go ahead and get a V/Q scan. Oxygen will be given as necessary to keep sats greater than 90%. P.r.n. analgesia will be used for pain control. Further workup of the possible splenic mass will be left to the attending physician. Imaging of the knee and lumbar spine did not show any acute fracture. It did show some suggestion of DJD. He is appropriately on DVT prophylaxis. He will be put on GI prophylaxis. Flu and pneumonia vaccination will be per protocol. Thank you very much for the consult. We will follow along and make further recommendations as picture progresses/becomes clearer. I should mention continued tobacco abstinence has been counseled and weight loss has been counseled. He is critically ill on life-sustaining interventions including vasoactive medications, at risk for further deterioration in the cardiovascular systems and respiratory systems including the risk of . At this time, we spent about 35-40 minutes of critical care time without overlap and excluding any procedural time that may be necessary. JOB# [id number] KEVIN/STEFF BARRAZA
[2018-01-05] MEDS: APRESOLINE IV SCH ×4 (06:44→13:41)
[2018-01-05] MEDS: NACL 0.45% 1000 ML 1,000 ML IV SCH (06:53)
[2018-01-05] MEDS: LIORESAL PO SCH ×3 (08:20→20:49)
[2018-01-05] MEDS: COZAAR PO SCH (09:51)
[2018-01-05] MEDS: COLACE PO SCH ×2 (09:51→21:59)
[2018-01-05] MEDS: LOVENOX SUB-Q SCH (09:51)
[2018-01-05] MEDS: SODIUM CHLORIDE FLUSH SYRINGE 10 ML IV SCH ×2 (09:52→21:59)
[2018-01-05] MEDS: COREG PO SCH ×2 (09:52→21:58)
--- NOTE | 2018-01-05 14:09 | Progress Note ---
Assessment and Plan Assessment and plan: Hypertensive emergency -off nicardipine drip -Blood pressure still elevated, antihypertensives adjusted Acute severe back pain -CT lumbar spine showed possible disc herniation L5-S1 -MRI for further evaluation pending -cont PRN narcotics for pain control -PT consulted Possible splenic mass versus infection per imaging -MRI recommended for further evaluation pending Dyspnea on exertion -Echo showed EF of 70-75% with diastolic dysf Left knee pain -Left knee x-ray neg for acute fracture Medication noncompliance -Patient counseled Prophylaxis -DVT prophylaxis with Lovenox Disposition: Patient is awaiting MRI. History Interval history: Patient continues to complain of lower back pain. He has been unable to walk independently since admission. Hospitalist Physical - Constitutional Vitals: Temp Pulse Resp BP Pulse Ox 98.5 F 86 20 179/99 97 01/05/18 11:37 01/05/18 13:41 01/05/18 11:37 01/05/18 13:41 01/05/18 11:37 General appearance: Present: no acute distress, well-nourished - EENT Eyes: Present: PERRL, EOM intact ENT: hearing intact, clear oral mucosa - Neck Neck: Present: supple - Respiratory Respiratory effort: normal Respiratory: bilateral: CTA - Cardiovascular Rhythm: regular Heart Sounds: Present: S1 & S2 - Extremities Extremities: No edema - Abdominal General gastrointestinal: soft, non-tender, normal bowel sounds - Neurologic Neurologic: moves all extremities, other (Alert and oriented 3) Results - Labs CBC & Chem 7: 01/02/18 16:23 01/02/18 16:23 Labs: Laboratory Last Values WBC 6.9 K/mm3 (4.5-11.0) 01/02/18 16:23 RBC 5.05 M/mm3 (3.65-5.03) H 01/02/18 16:23 Hgb 15.5 gm/dl (11.8-15.2) H 01/02/18 16:23 Hct 44.7 % (35.5-45.6) 01/02/18 16:23 MCV 89 fl (84-94) 01/02/18 16:23 MCH 31 pg (28-32) 01/02/18 16:23 MCHC 35 % (32-34) H 01/02/18 16:23 RDW 14.7 % (13.2-15.2) 01/02/18 16:23 Plt Count 251 K/mm3 (140-440) 01/02/18 16:23 Lymph % (Auto) 18.7 % (13.4-35.0) 01/02/18 16:23 [place] % (Auto) 10.2 % (0.0-7.3) H 01/02/18 16:23 Eos % (Auto) 0.8 % (0.0-4.3) 01/02/18 16:23 Baso % (Auto) 0.8 % (0.0-1.8) 01/02/18 16:23 Lymph # 1.3 K/mm3 (1.2-5.4) 01/02/18 16:23 [place] # 0.7 K/mm3 (0.0-0.8) 01/02/18 16:23 Eos # 0.1 K/mm3 (0.0-0.4) 01/02/18 16:23 Baso # 0.1 K/mm3 (0.0-0.1) 01/02/18 16:23 Seg Neutrophils % 69.5 % (40.0-70.0) 01/02/18 16:23 Seg Neutrophils # 4.8 K/mm3 (1.8-7.7) 01/02/18 16:23 Sodium 138 mmol/L (137-145) 01/02/18 16:23 Potassium 4.0 mmol/L (3.6-5.0) 01/02/18 16:23 Chloride 100.5 mmol/L (98-107) 01/02/18 16:23 Carbon Dioxide 23 mmol/L (22-30) 01/02/18 16:23 Anion Gap 19 mmol/L 01/02/18 16:23 BUN 14 mg/dL (9-20) 01/02/18 16:23 Creatinine 0.9 mg/dL (0.8-1.5) 01/02/18 16:23 Estimated GFR > 60 ml/min 01/02/18 16:23 BUN/Creatinine Ratio 16 % 01/02/18 16:23 Glucose 96 mg/dL (75-100) 01/02/18 16:23 Calcium 9.4 mg/dL (8.4-10.2) 01/02/18 16:23 Total Bilirubin 0.40 mg/dL (0.1-1.2) 01/02/18 16:23 AST 21 units/L (5-40) 01/02/18 16:23 ALT 24 units/L (7-56) 01/02/18 16:23 Alkaline Phosphatase 83 units/L (35-129) 01/02/18 16:23 Total Creatine Kinase 151 units/L (55-170) 01/02/18 22:48 CK-MB (CK-2) 2.9 ng/mL (0.0-4.0) 01/02/18 22:48 CK-MB (CK-2) Rel Index 1.9 (0-4) 01/02/18 22:48 Troponin T < 0.010 ng/mL (0.00-0.029) 01/02/18 22:48 NT-Pro-B Natriuret Pep 133.7 pg/mL (0-900) 01/02/18 22:48 Total Protein 7.9 g/dL (6.3-8.2) 01/02/18 16:23 Albumin 4.6 g/dL (3.9-5) 01/02/18 16:23 Albumin/Globulin Ratio 1.4 % 01/02/18 16:23 TSH 0.542 mlU/mL (0.270-4.200) 01/03/18 03:44 Urine Color Yellow (Yellow) 01/02/18 19:22 Urine Turbidity Clear (Clear) 01/02/18 19:22 Urine pH 5.0 (5.0-7.0) 01/02/18 19:22 Ur Specific [place] 1.047 (1.003-1.030) H 01/02/18 19:22 Urine Protein <15 mg/dl mg/dL (Negative) 01/02/18 19:22 Urine Glucose (UA) Neg mg/dL (Negative) 01/02/18 19:22 Urine Ketones Tr mg/dL (Negative) 01/02/18 19:22 Urine Blood Neg (Negative) 01/02/18 19:22 Urine Nitrite Neg (Negative) 01/02/18 19:22 Urine Bilirubin Neg (Negative) 01/02/18 19:22 Urine Urobilinogen < 2.0 mg/dL (<2.0) 09/07/18 19:22 Ur Leukocyte Esterase Neg (Negative) 01/02/18 19:22 Urine WBC (Auto) 1.0 /HPF (0.0-6.0) 01/02/18 19:22 Urine RBC (Auto) 2.0 /HPF (0.0-6.0) 01/02/18 19:22 U Epithel Cells (Auto) 1.0 /HPF (0-13.0) 01/02/18 19:22 Urine Mucus Few /HPF 01/02/18 19:22
[2018-01-05] MEDS ORDERED: APRESOLINE IV PRN (14:40)
[2018-01-05] MEDS: APRESOLINE PO SCH ×3 (14:48→22:01)
[2018-01-06] MEDS: NACL 0.45% 1000 ML 1,000 ML IV SCH ×2 (01:45→21:53)
[2018-01-06] MEDS: APRESOLINE PO SCH ×3 (06:11→21:50)
[2018-01-06] MEDS: LIORESAL PO SCH ×3 (08:44→21:48)
[2018-01-06] MEDS: COLACE PO SCH ×2 (09:24→21:48)
[2018-01-06] MEDS: COZAAR PO SCH (09:25)
[2018-01-06] MEDS: COREG PO SCH ×3 (09:25→21:50)
[2018-01-06] MEDS: LOVENOX SUB-Q SCH (09:25)
[2018-01-06] MEDS: SODIUM CHLORIDE FLUSH SYRINGE 10 ML IV SCH ×2 (09:26→21:56)
[2018-01-06] MEDS: PERCOCET 5/325 PO PRN ×2 (11:03→21:49)
[2018-01-06] MEDS ORDERED: COZAAR PO SCH (11:30)
[2018-01-06] MEDS ORDERED: APRESOLINE PO SCH (12:31)
--- NOTE | 2018-01-06 12:35 | Progress Note ---
Assessment and Plan Assessment and plan: Hypertensive emergency -off nicardipine drip -Blood pressure still elevated, probably due to uncontrolled pain -Hydralazine dose was increased. Continue Coreg, Cozaar changed to amlodipine -Add additional antihypertensive as needed -Will adjust narcotic for adequate pain control Acute severe back pain -CT lumbar spine showed possible disc herniation L5-S1 -MRI for further evaluation still pending due to machine malfunction -cont PRN narcotics for pain control -PT consulted Possible splenic mass versus infection per imaging -MRI recommended for further evaluation pending Dyspnea on exertion -Echo showed EF of 70-75% with diastolic dysf Left knee pain, improved -Left knee x-ray neg for acute fracture Medication noncompliance -Patient counseled Prophylaxis -DVT prophylaxis with Lovenox Disposition: Patient is awaiting MRI before discharge planning. History Interval history: Patient has no new complaints except for continued lower back pain Hospitalist Physical - Constitutional Vitals: Temp Pulse Resp BP Pulse Ox 98.5 F 77 20 166/102 99 01/06/18 05:21 01/06/18 11:09 01/06/18 11:03 01/06/18 11:09 01/06/18 05:21 General appearance: Present: no acute distress, well-nourished - EENT Eyes: Present: PERRL, EOM intact ENT: hearing intact, clear oral mucosa - Neck Neck: Present: supple - Respiratory Respiratory effort: normal Respiratory: bilateral: CTA - Cardiovascular Rhythm: regular Heart Sounds: Present: S1 & S2 - Extremities Extremities: No edema - Abdominal General gastrointestinal: soft, non-tender, normal bowel sounds - Neurologic Neurologic: CNII-XII intact Results - Labs CBC & Chem 7: 01/02/18 16:23 01/02/18 16:23 Labs: Laboratory Last Values WBC 6.9 K/mm3 (4.5-11.0) 01/02/18 16:23 RBC 5.05 M/mm3 (3.65-5.03) H 01/02/18 16:23 Hgb 15.5 gm/dl (11.8-15.2) H 01/02/18 16:23 Hct 44.7 % (35.5-45.6) 01/02/18 16:23 MCV 89 fl (84-94) 01/02/18 16:23 MCH 31 pg (28-32) 01/02/18 16:23 MCHC 35 % (32-34) H 01/02/18 16:23 RDW 14.7 % (13.2-15.2) 01/02/18 16:23 Plt Count 251 K/mm3 (140-440) 01/02/18 16:23 Lymph % (Auto) 18.7 % (13.4-35.0) 01/02/18 16:23 [place] % (Auto) 10.2 % (0.0-7.3) H 01/02/18 16:23 Eos % (Auto) 0.8 % (0.0-4.3) 01/02/18 16:23 Baso % (Auto) 0.8 % (0.0-1.8) 01/02/18 16:23 Lymph # 1.3 K/mm3 (1.2-5.4) 01/02/18 16:23 [place] # 0.7 K/mm3 (0.0-0.8) 01/02/18 16:23 Eos # 0.1 K/mm3 (0.0-0.4) 01/02/18 16:23 Baso # 0.1 K/mm3 (0.0-0.1) 01/02/18 16:23 Seg Neutrophils % 69.5 % (40.0-70.0) 01/02/18 16:23 Seg Neutrophils # 4.8 K/mm3 (1.8-7.7) 01/02/18 16:23 Sodium 138 mmol/L (137-145) 01/02/18 16:23 Potassium 4.0 mmol/L (3.6-5.0) 01/02/18 16:23 Chloride 100.5 mmol/L (98-107) 01/02/18 16:23 Carbon Dioxide 23 mmol/L (22-30) 01/02/18 16:23 Anion Gap 19 mmol/L 01/02/18 16:23 BUN 14 mg/dL (9-20) 01/02/18 16:23 Creatinine 0.9 mg/dL (0.8-1.5) 01/02/18 16:23 Estimated GFR > 60 ml/min 01/02/18 16:23 BUN/Creatinine Ratio 16 % 01/02/18 16:23 Glucose 96 mg/dL (75-100) 01/02/18 16:23 Calcium 9.4 mg/dL (8.4-10.2) 01/02/18 16:23 Total Bilirubin 0.40 mg/dL (0.1-1.2) 01/02/18 16:23 AST 21 units/L (5-40) 01/02/18 16:23 ALT 24 units/L (7-56) 01/02/18 16:23 Alkaline Phosphatase 83 units/L (35-129) 01/02/18 16:23 Total Creatine Kinase 151 units/L (55-170) 01/02/18 22:48 CK-MB (CK-2) 2.9 ng/mL (0.0-4.0) 01/02/18 22:48 CK-MB (CK-2) Rel Index 1.9 (0-4) 01/02/18 22:48 Troponin T < 0.010 ng/mL (0.00-0.029) 01/02/18 22:48 NT-Pro-B Natriuret Pep 133.7 pg/mL (0-900) 01/02/18 22:48 Total Protein 7.9 g/dL (6.3-8.2) 01/02/18 16:23 Albumin 4.6 g/dL (3.9-5) 01/02/18 16:23 Albumin/Globulin Ratio 1.4 % 01/02/18 16:23 TSH 0.542 mlU/mL (0.270-4.200) 01/03/18 03:44 Urine Color Yellow (Yellow) 01/02/18 19:22 Urine Turbidity Clear (Clear) 01/02/18 19:22 Urine pH 5.0 (5.0-7.0) 01/02/18 19:22 Ur Specific [place] 1.047 (1.003-1.030) H 01/02/18 19:22 Urine Protein <15 mg/dl mg/dL (Negative) 01/02/18 19:22 Urine Glucose (UA) Neg mg/dL (Negative) 01/02/18 19:22 Urine Ketones Tr mg/dL (Negative) 01/02/18 19:22 Urine Blood Neg (Negative) 01/02/18 19:22 Urine Nitrite Neg (Negative) 01/02/18 19:22 Urine Bilirubin Neg (Negative) 01/02/18 19:22 Urine Urobilinogen < 2.0 mg/dL (<2.0) 01/02/18 19:22 Ur Leukocyte Esterase Neg (Negative) 01/02/18 19:22 Urine WBC (Auto) 1.0 /HPF (0.0-6.0) 01/02/18 19:22 Urine RBC (Auto) 2.0 /HPF (0.0-6.0) 01/02/18 19:22 U Epithel Cells (Auto) 1.0 /HPF (0-13.0) 01/02/18 19:22 Urine Mucus Few /HPF 01/02/18 19:22
[2018-01-06] MEDS ORDERED: DILAUDID IV PRN (12:40)
[2018-01-07] MEDS: APRESOLINE PO SCH ×4 (10:21→20:53)
[2018-01-07] MEDS: COLACE PO SCH ×2 (10:21→22:00)
[2018-01-07] MEDS: LIORESAL PO SCH ×4 (10:21→20:53)
[2018-01-07] MEDS: LOVENOX SUB-Q SCH (10:24)
--- NOTE | 2018-01-07 11:39 | Progress Note ---
Assessment and Plan Hypertensive emergency -off nicardipine drip -Blood pressure still elevated, probably due to uncontrolled pain -Hydralazine dose was increased. Continue Coreg, Cozaar changed to amlodipine -Add additional antihypertensive as needed -Will adjust narcotic for adequate pain control Acute severe back pain -CT lumbar spine showed possible disc herniation L5-S1 -MRI for further evaluation still pending due to machine malfunction -cont PRN narcotics for pain control -PT consulted Possible splenic mass versus infection per imaging -MRI recommended for further evaluation pending Dyspnea on exertion -Echo showed EF of 70-75% with diastolic dysf Left knee pain, improved -Left knee x-ray neg for acute fracture Medication noncompliance -Patient counseled Prophylaxis -DVT prophylaxis with Lovenox Disposition: Patient is awaiting MRI before discharge planning. Hospitalist Physical General appearance: Present: no acute distress, well-nourished - EENT Eyes: Present: PERRL, EOM intact ENT: hearing intact, clear oral mucosa - Neck Neck: Present: supple - Respiratory Respiratory effort: normal Respiratory: bilateral: CTA - Cardiovascular Rhythm: regular Heart Sounds: Present: S1 & S2 - Extremities Extremities: No edema - Abdominal General gastrointestinal: soft, non-tender, normal bowel sounds - Neurologic Neurologic: CNII-XII intact Subjective Date of service: 01/07/18 Principal diagnosis: hypertensive emergency; DENISE; SOB; Obesity Interval history: Patient has no new complaints except for continued lower back pain states he feels like wants to eat today Objective - Constitutional Vitals: Vital Signs - 12hr 01/07/18 05:24 Temperature 98.0 F Pulse Rate 78 Respiratory 20 Rate Blood Pressure 143/89 O2 Sat by Pulse 97 Oximetry - Labs CBC & Chem 7: 01/02/18 16:23 01/02/18 16:23
[2018-01-07] MEDS: NORVASC PO SCH (12:26)
[2018-01-07] MEDS: COREG PO SCH ×2 (12:27→22:00)
[2018-01-07] MEDS: SODIUM CHLORIDE FLUSH SYRINGE 10 ML IV SCH ×2 (13:33→22:00)
--- NOTE | 2018-01-07 15:10 | Magnetic Resonance Report ---
MRI LUMBAR SPINE WITHOUT CONTRAST HISTORY: Lower back pain. TECHNIQUE: axial T1, T2. sagittal T1,T2, STIR. COMPARISON: none. FINDINGS: The conus terminates at L1. No signal abnormality or mass. The cauda equina is within normal limits. Normal height and alignment of the lumbar vertebra. Normal bone marrow signal. No acute fracture or suspicious bone lesion. Mild diffuse facet arthropathy is noted. Mild disc desiccation is noted at L3-4 and L4-5 L1-2: No significant abnormality. L2-3: No significant abnormality. L3-4: No significant abnormality. L4-5: A large right paracentral disc herniation is identified which exerts mass effect on the right side of the thecal sac and multiple right nerve root. This results in high-grade central canal stenosis and right neural foraminal narrowing. The herniation measures approximately 1.0 cm transverse, 0.9 cm AP and 0.8 cm craniocaudal. L5-S1: No significant abnormality. IMPRESSION: Large right paracentral disc herniation at L4-5 as described.
--- NOTE | 2018-01-07 15:16 | Magnetic Resonance Report ---
MR ABDOMEN WITH AND WITHOUT CONTRAST History: Splenic mass. Technique: Multisequence, multiplanar MRI before and after IV gadolinium. Findings: The CT angiogram abdomen and pelvis performed 01/02/18 [place] reviewed. The spleen is normal measuring 10.0 x 8.2 x 4.7 cm. No mass or infiltrative disease. The abnormality seen on CTA is a normal arterial enhancement pattern of the splenic parenchyma. Signal characteristics of the liver, biliary system, pancreas, kidneys and adrenal glands are within normal limits. There is no evidence for bowel obstruction or focal inflammation. No obvious GI mass on MRI. Heart size is normal. The visualized lung bases are within normal limits. Normal bone marrow signal in the spine. Impression: Normal spleen. Unremarkable MR abdomen with and without contrast.
[2018-01-07] MEDS: MIRALAX 3350 PO SCH (15:34)
[2018-01-07] MEDS: PERCOCET 5/325 PO PRN (17:33)
[2018-01-07] MEDS: NACL 0.45% 1000 ML 1,000 ML IV SCH (18:02)
[2018-01-08 07:08] LABS: Basophils % (Auto) 0.9 % (0.0-1.8); Eosinophils # (Auto) 0.1 K/mm3 (0.0-0.4); Lymphocytes # (Auto) 1.5 K/mm3 (1.2-5.4); Lymphocytes % (Auto) 29.4 % (13.4-35.0); Mean Corpuscular HGB Conc 36 % (32-34); Mean Corpuscular Hemoglobin 31 pg (28-32); Mean Corpuscular Volume 87 fl (84-94); Monocytes # (Auto) 0.8 K/mm3 (0.0-0.8); Monocytes % (Auto) 15.9 % (0.0-7.3); Platelet Count 334 K/mm3 (140-440); Red Blood Count 4.88 M/mm3 (3.65-5.03); Red Cell Distribution Width 13.9 % (13.2-15.2)
[2018-01-08 07:10] LABS: Hematocrit 42.4 % (35.5-45.6); Hemoglobin 15.1 gm/dl (11.8-15.2)
[2018-01-08 07:35] LABS: BUN/Creatinine Ratio 22; Blood Urea Nitrogen 22 mg/dL (9-20); Calcium 9.2 mg/dL (8.4-10.2); Hemolysis Index 6
[2018-01-08] MEDS: LIORESAL PO SCH ×2 (08:26→14:06)
[2018-01-08] MEDS: PERCOCET 5/325 PO PRN (08:27)
[2018-01-08] MEDS: APRESOLINE PO SCH ×2 (08:28→14:06)
[2018-01-08] MEDS: NORVASC PO SCH (09:39)
[2018-01-08] MEDS: MIRALAX 3350 PO SCH (09:39)
[2018-01-08] MEDS: COLACE PO SCH (09:39)
[2018-01-08] MEDS: COREG PO SCH (09:39)
[2018-01-08] MEDS: LOVENOX SUB-Q SCH (09:40)
[2018-01-08] MEDS: SODIUM CHLORIDE FLUSH SYRINGE 10 ML IV SCH (09:41)
[2018-01-08] MEDS: NACL 0.45% 1000 ML 1,000 ML IV SCH (14:06)
--- NOTE | 2018-01-08 15:10 | Progress Note ---
Assessment and Plan Hypertensive emergency -off nicardipine drip -Blood pressure still elevated, probably due to uncontrolled pain -Hydralazine dose was increased. Continue Coreg, Cozaar changed to amlodipine -Add additional antihypertensive as needed -Will adjust narcotic for adequate pain control Acute severe back pain -CT lumbar spine showed possible disc herniation L5-S1 -MRI for further evaluation still pending due to machine malfunction -cont PRN narcotics for pain control -PT consulted Possible splenic mass versus infection per imaging -MRI recommended for further evaluation pending Dyspnea on exertion -Echo showed EF of 70-75% with diastolic dysf Left knee pain, improved -Left knee x-ray neg for acute fracture Medication noncompliance -Patient counseled Prophylaxis -DVT prophylaxis with Lovenox Disposition: Patient is awaiting MRI before discharge planning. Hospitalist Physical General appearance: Present: no acute distress, well-nourished - EENT Eyes: Present: PERRL, EOM intact ENT: hearing intact, clear oral mucosa - Neck Neck: Present: supple - Respiratory Respiratory effort: normal Respiratory: bilateral: CTA - Cardiovascular Rhythm: regular Heart Sounds: Present: S1 & S2 - Extremities Extremities: No edema - Abdominal General gastrointestinal: soft, non-tender, normal bowel sounds - Neurologic Neurologic: CNII-XII intact Subjective Date of service: 01/08/18 Principal diagnosis: hypertensive emergency; [place]ISE; SOB; Obesity Objective - Constitutional Vitals: Vital Signs - 12hr 01/08/18 01/08/18 01/08/18 06:43 08:27 08:31 Temperature 98.5 F Pulse Rate 68 Respiratory 20 16 Rate Respiratory 16 Rate [Back] Blood Pressure 147/85 169/102 O2 Sat by Pulse 100 Oximetry 01/08/18 01/08/18 01/08/18 08:37 09:27 09:39 Temperature Pulse Rate 85 Respiratory 16 15 Rate Respiratory Rate [Back] Blood Pressure 188/97 O2 Sat by Pulse Oximetry 01/08/18 01/08/18 09:42 13:16 Temperature 98.5 F Pulse Rate 80 Respiratory 18 Rate Respiratory Rate [Back] Blood Pressure 188/97 149/91 O2 Sat by Pulse 96 Oximetry - Labs CBC & Chem 7: 01/08/18 05:36 01/08/18 05:36 Labs: Abnormal lab results 01/08/18 01/08/18 Range/Units 05:36 05:36 MCHC 36 H (32-34) % [place] % (Auto) 15.9 H (0.0-7.3) % Sodium 136 L (137-145) mmol/L Carbon Dioxide 19 L (22-30) mmol/L BUN 22 H (9-20) mg/dL
--- NOTE | 2018-01-08 16:26 | Discharge Summary ---
Providers - Providers Date of Admission: 01/02/18 23:32 Date of discharge: 01/08/18 Attending physician: RORY AMAYA 01/02/18 23:38 Consult to Physician [CONS] Routine Comment: Answering service notified @ [id number] Consulting Provider: MAY FITZPATRICK Physician Instructions: Reason For Exam: HYPERTENSIVE EMERGENCY 01/05/18 11:22 Physical Therapy Evaluation and Treat [CONS] Urgent Comment: Reason For Exam: deconditioning 01/08/18 13:08 Consult to Physician [CONS] Routine Comment: Consulting Provider: PARVEEN PARRA Physician Instructions: Reason For Exam: lumber disk herneation Primary care physician: IT TEACHER Hospitalization Condition: Critical Hospital course: Hypertensive emergency -off nicardipine drip -Blood pressure still elevated, probably due to uncontrolled pain -Hydralazine dose was increased. Continue Coreg, Cozaar changed to amlodipine -Add additional antihypertensive as needed -Will adjust narcotic for adequate pain control Acute severe back pain -CT lumbar spine showed possible disc herniation L5-S1 -MRI for further evaluation still pending due to machine malfunction -cont PRN narcotics for pain control -PT consulted Possible splenic mass versus infection per imaging -MRI recommended for further evaluation pending Dyspnea on exertion -Echo showed EF of 70-75% with diastolic dysf Left knee pain, improved -Left knee x-ray neg for acute fracture Medication noncompliance -Patient counseled Prophylaxis -DVT prophylaxis with Lovenox Disposition: Patient is awaiting MRI before discharge planning. Hospitalist Physical General appearance: Present: no acute distress, well-nourished - EENT Eyes: Present: PERRL, EOM intact ENT: hearing intact, clear oral mucosa - Neck Neck: Present: supple - Respiratory Respiratory effort: normal Respiratory: bilateral: CTA - Cardiovascular Rhythm: regular Heart Sounds: Present: S1 & S2 - Extremities Extremities: No edema - Abdominal General gastrointestinal: soft, non-tender, normal bowel sounds - Neurologic Neurologic: CNII-XII intact Disposition: DC-01 TO HOME OR SELFCARE Time spent for discharge: 34 minutes Exam - Constitutional Vitals: Temp Pulse Resp BP Pulse Ox 98.5 F 80 18 149/91 96 01/08/18 13:16 01/08/18 13:16 01/08/18 13:16 01/08/18 13:16 09/13/18 13:16 Plan Activity: advance as tolerated Weight Bearing Status: Non-Weight Bearing Diet: low fat Special Instructions: other (outpt PT) Additional Instructions: f/u with neurosurgen in two weeks Follow up with: PRIMARY CARE, [Primary Care Provider] - 3-5 Days Prescriptions: amLODIPine [Norvasc] 10 mg PO QDAY #30 tablet Baclofen [Lioresal] 20 mg PO TID #14 tablet Carvedilol [Coreg] 25 mg PO BID #60 tablet hydrALAZINE [Apresoline TAB] 100 mg PO TID #90 tab oxyCODONE /ACETAMINOPHEN [Percocet 5/325 mg] 2 tab PO Q4H PRN #10 tablet PRN Reason: Pain, Moderate (4-6) Polyethylene Glycol 3350 [Miralax 3350] 17 gm PO QDAY 30 Days powd.pack
--- NOTE | 2018-01-08 16:56 | Consultation ---
History of Present Illness - [facility] Consult date: 01/08/18 Consult reason: low back pain History of present illness: 57-year-old male who comes in complaining of severe low back pain patient states he was at work when he lifted a heavy object patient states he was lifted and twisted his back at the same time after was experienced severe low back pain nonradiating patient also complains of left knee pain he denies a history of trauma. An MRI scan done on admission revealed a disc herniation at the L5-S1 level asked to evaluate Past History Past Medical History: hypertension, other (TIA) Past Surgical History: Other (Eye surgery) Social history: other (patient admits to daily alcohol use. He quit smoking tobacco a year ago, he smoked for 2 years. He denies illicit drug use) Family history: diabetes, hypertension, stroke Medications and Allergies Allergies Allergy/AdvReac Type Severity Reaction Status Date / Time No Known Allergies Allergy Unverified 01/02/18 14:39 Home Medications Medication Instructions Recorded Confirmed Last Taken Type Baclofen [Lioresal] 20 mg PO TID #14 tablet 01/08/18 Unknown Rx Carvedilol [Coreg] 25 mg PO BID #60 tablet 01/08/18 Unknown Rx Polyethylene Glycol 3350 [Miralax 17 gm PO QDAY 30 Days powd.pack 01/08/18 Unknown Rx 3350] amLODIPine [Norvasc] 10 mg PO QDAY #30 tablet 01/08/18 Unknown Rx hydrALAZINE [Apresoline TAB] 100 mg PO TID #90 tab 01/08/18 Unknown Rx oxyCODONE /ACETAMINOPHEN [Percocet 2 tab PO Q4H PRN #10 tablet 01/08/18 Unknown Rx 5/325 mg] Active Meds: Active Medications Acetaminophen (Tylenol) 650 mg PO Q6HR PRN PRN Reason: Pain,Mild (1-3), FEVER>101,PRADO Al Hydrox/Mg Hydrox/Simethicone (Alum-Mag Hydrox-Simeth 041-700-57tz/5ml) 30 ml PO Q4H PRN PRN Reason: Indigestion Alprazolam (Xanax) 0.25 mg PO Q8H PRN PRN Reason: Anxiety Last Admin: 01/04/18 14:16 Dose: 0.25 mg Amlodipine Besylate (Norvasc) 10 mg PO QDAY VINOD Last Admin: 01/08/18 09:39 Dose: 10 mg Baclofen (Lioresal) 20 mg PO TID [facility] Last Admin: 01/08/18 14:06 Dose: 20 mg Carvedilol (Coreg) 25 mg PO BID [facility] Last Admin: 01/08/18 09:39 Dose: 25 mg Docusate Sodium (Colace) 100 mg PO BID [facility] Last Admin: 01/08/18 09:39 Dose: 100 mg Enoxaparin Sodium (Lovenox) 40 mg SUB-Q QDAY [facility] Last Admin: 01/08/18 09:40 Dose: 40 mg Hydralazine HCl (Apresoline) 10 mg IV Q4H PRN PRN Reason: Blood Pressure Last Admin: 01/06/18 13:14 Dose: 10 mg Hydralazine HCl (Apresoline) 100 mg PO TID [facility] Last Admin: 01/08/18 14:06 Dose: 100 mg Hydromorphone HCl (Dilaudid) 1 mg IV Q4H PRN PRN Reason: Pain , Severe (7-10) Last Admin: 01/06/18 13:03 Dose: 1 mg Sodium Chloride (Nacl 0.45% 1000 Ml) 1,000 mls @ 50 mls/hr IV DIRECT [facility] Last Admin: 01/08/18 14:06 Dose: 50 mls/hr Ondansetron HCl (Zofran) 4 mg IV Q8H PRN PRN Reason: Nausea And Vomiting Last Admin: 01/04/18 22:31 Dose: 4 mg Oxycodone/Acetaminophen (Percocet 5/325) 2 tab PO Q4H PRN PRN Reason: Pain, Moderate (4-6) Last Admin: 01/08/18 08:27 Dose: 2 tab Polyethylene Glycol (Miralax 3350) 17 gm PO QDAY [facility] Last Admin: 01/08/18 09:39 Dose: 17 gm Sodium Chloride (Sodium Chloride Flush Syringe 10 Ml) 10 ml IV BID [facility] Last Admin: 01/08/18 09:41 Dose: 10 ml Sodium Chloride (Sodium Chloride Flush Syringe 10 Ml) 10 ml IV PRN PRN PRN Reason: LINE FLUSH Zolpidem Tartrate (Ambien) 5 mg PO QHS PRN PRN Reason: Sleeplessness Physical Examination - Physical exam Narrative exam: Well-nourished well-developed male in no obvious distress significant musculoskeletal findings replaced to the lumbar spine. He was noted to have some tenderness across the lower lumbar region straight leg raising was negative deep tendon reflexes were equal The MRI scan of the lumbar spine was reviewed by me and show a moderate size disc herniation at the L5-S1 level on the right side Eyes: PERRL ENT: Positive: clear oral mucosa Respiratory effort: normal Respiratory: bilateral: CTA Rhythm: regular Heart Sounds: Positive: S1 & S2 General gastrointestinal: Positive: soft, non-tender, non-distended, normal bowel sounds Integumentary: clear, warm, dry Neurologic: Positive: CNII-XII intact, moves all extremities, gait normal. Negative: focal deficits - Cervical Spine Neck pain: none Tenderness with palpation: none Full ROM: yes ROM: flexion: normal ROM: extension: normal ROM: rotation right: normal ROM: rotation left: normal ROM: lateral flexion right: normal ROM: lateral flexion left: normal - Lumbar Spine Back pain: none Tenderness with palpation: none Appearance: normal Full ROM: yes ROM: flexion: normal ROM: extension: normal ROM: rotation right: normal ROM: rotation left: normal ROM: lateral flexion right: normal ROM: lateral flexion left: normal Assessment and Plan Assessment low back pain nonradiating, doubt if the herniated disc seen on the MRI scan is causing the patient's current problems this may in fact be old in nature Recommendations - recommend physical therapy for heat ultrasound massage treatments also anti-inflammatory medication and muscle relaxants. She can be followed as an outpatient upon discharge
[2018-01-08 17:14] VITALS: BP 148/91
== END 2018-01-08 18:00 | disposition home or self-care (01) | DRG 552 ==
LOC: ED 14:12 → CC1 23:32 → 3A 01-04 20:53
PROVIDERS: ADMIT Internal Medicine; ATTEND Internal Medicine
DX: M51.27 Other intervertebral disc displacement, lumbosacral region (principal); I16.1 Hypertensive emergency; I10 Essential (primary) hypertension; M25.562 Pain in left knee; E66.9 Obesity, unspecified; M54.9 Dorsalgia, unspecified; F17.200 Nicotine dependence, unspecified, uncomplicated; M25.462 Effusion, left knee; S39.012A Strain of muscle, fascia and tendon of lower back, initial encounter; R16.1 Splenomegaly, not elsewhere classified; D73.89 Other diseases of spleen; Z68.31 Body mass index [BMI] 31.0-31.9, adult; Z86.73 Personal history of transient ischemic attack (TIA), and cerebral infarction without residual deficits; Z83.3 Family history of diabetes mellitus; Z82.49 Family history of ischemic heart disease and other diseases of the circulatory system; Z82.3 Family history of stroke; Z79.899 Other long term (current) drug therapy; Z91.14 Patient's other noncompliance with medication regimen; Z71.6 Tobacco abuse counseling; Y93.89 Activity, other specified; Y92.89 Other specified places as the place of occurrence of the external cause; Y99.8 Other external cause status
CPT/HCPCS: 36415; 71275; 72131; 72148; 74174; 74183; 80048; 80053; 81001; 82550; 82553; 82962; 83880; 84443; 84484; 85025; 93005; 93010; 93306; 96374; 96375; 96376; A9577; J0360; J1170; J1200; J1650; J2270; J2405; J2930; J7050; Q9967